=== PATIENT | female | born 1945 | race Caucasian/White ===

== ENCOUNTER → 2018-07-26 12:44 | Outpatient (CLI) | payer MEDICARE ==
[~2018-07-26 12:44] MED LIST: ACETAMINOPHEN325 MG PO; ALEVE220 MG; BAYER CHEWABLE81 MG PO; COLACE100 MG; IMODIUM2 MG; METOPROLOL TART25 MG PO; NITRO; OXYBUTYNIN CHLOR5 MG; ULTRAM50 MG PO; ZOFRAN8 MG
== END | disposition home or self-care (01) ==
LOC: D.CT 07-17 13:00
DX: Z89.611 Acquired absence of right leg above knee (principal)

== ENCOUNTER 2018-07-27 20:07 | Emergency (ER) | payer MEDICARE ==
[~2018-07-27] VITALS: Ht 157.5 cm; Wt 77.3 kg
[2018-07-27 20:11] VITALS: Ht 157.5 cm; Wt 77.3 kg
[2018-07-27] MEDS ORDERED: ACETAMINOPHEN325 MG PO (20:13)
[2018-07-27] MEDS ORDERED: ULTRAM50 MG PO (20:13)
[2018-07-27] MEDS ORDERED: METOPROLOL TART25 MG PO (20:14)
[2018-07-27] MEDS ORDERED: OXYBUTYNIN CHLOR5 MG (20:14)
[2018-07-27] MEDS ORDERED: IMODIUM2 MG (20:14)
[2018-07-27] MEDS ORDERED: ALEVE220 MG (20:15)
[2018-07-27] MEDS ORDERED: BAYER CHEWABLE81 MG PO (20:15)
[2018-07-27] MEDS ORDERED: ZOFRAN8 MG (20:15)
[2018-07-27] MEDS ORDERED: COLACE100 MG (20:16)
[2018-07-27] MEDS ORDERED: NITRO (20:17)
[2018-07-27 20:58] LABS: BASOPHILS 0.3 % (0-2); EOSINOPHILS 1.1 % (0-7); HEMATOCRIT 36.7 % (36.0-48.0); HEMOGLOBIN 11.9 g/dL (12-16); IMMATURE GRANULOCYTES 0.1 % (0-5); LYMPHOCYTES 29.8 % (15-50); MCHC 32.4 g/dL (31.0-37.0); MCV 95.6 fL (80.0-100.0); MEAN PLATELET VOLUME 9.5 fL (7.4-10.4); MONOCYTES 11.7 % (2-11); PLATELET COUNT 128 10x3/uL (130-400); RBC 3.84 10x6/uL (4.00-5.40); RDW 14.2 % (11.5-14.5); WBC 7.3 10x3/uL (4.8-10.8)
[2018-07-27 22:00] LABS: ALBUMIN 3.1 g/dL (3.4-5.0); ANION GAP 14.7 mmol/L (8-16); BILIRUBIN - TOTAL 0.23 mg/dL (0.2-1.3); CALCIUM 8.8 mg/dL (8.5-10.1); CARBON DIOXIDE 23.7 mmol/L (21.0-32.0); CREATININE - SERUM 1.1 mg/dL (0.6-1.3); POTASSIUM - SERUM 4.4 mmol/L (3.5-5.1); PROTEIN - SERUM 8.6 g/dL (6.4-8.2)
[2018-07-28 01:58] VITALS: BP 117/72
== END 2018-07-28 02:00 | disposition other institution (70) ==
LOC: D.ER 20:07
PROVIDERS: Family Medicine
DX: T86.822 Skin graft (allograft) (autograft) infection (principal); Z89.611 Acquired absence of right leg above knee; M86.48 Chronic osteomyelitis with draining sinus, other site; Z98.890 Other specified postprocedural states

== ENCOUNTER → 2018-12-25 11:08 | Outpatient (CLI) | payer MEDICARE ==
[2018-12-25 15:10] LABS: APPEARANCE HAZY (CLEAR); BILIRUBIN NEGATIVE (NEGATIVE); COLOR YELLOW (YELLOW); GLUCOSE NEGATIVE (NEGATIVE); KETONE NEGATIVE (NEGATIVE); NITRITE POSITIVE (NEGATIVE); PROTEIN 1+ mg/dL (NEGATIVE); SPECIFIC GRAVITY 1.015 (1.005-1.020); UROBILINOGEN NORMAL (NORMAL)
[2018-12-25 15:11] LABS: BACTERIA MANY /hpf (NONE SEEN); EPITHELIAL CELLS 0-5 /hpf (0-5); RED CELLS - URINE 0-5 /hpf (0-5); WHITE CELLS - URINE >50 /hpf (0-5)
== END | disposition home or self-care (01) ==
LOC: D.LABREF 11:08
PROVIDERS: Family Medicine
DX: R30.0 Dysuria (principal)